=== PATIENT | female | born 1985 | race Caucasian/White ===

== ENCOUNTER 2016-04-24 21:13 | Emergency (ER) | payer BC ==
[2016-04-24] MEDS ORDERED: Benzocaine 20% Topical Spray UD MUCMEM ONE (21:38)
[2016-04-24] MEDS ORDERED: Lidocaine 2% Viscous Solution 15 ML Cup PO ONE (21:38)
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
[2016-04-24 21:55] VITALS: BP 150/78
== END 2016-04-24 21:55 | disposition home or self-care (01) ==
LOC: MW.ED 21:13
DX: K04.7 Periapical abscess without sinus (principal)
CPT/HCPCS: 99282; A9270; 99283